=== PATIENT | male | born 1955 | race Asian ===

== ENCOUNTER 2024-01-12 10:59 | Observation (INO) ==
[2024-01-12 12:32] LABS: ABS Basophils 0.1 10^3/uL (0.0-0.1); ABS Eosinophils 0.1 10^3/uL (0.0-0.5); ABS Lymphocytes 1.8 10^3/uL (1.0-4.8); ABS Monocytes 0.6 10^3/uL (0.0-1.1); ABS Neutrophils 4.7 10^3/uL (1.5-7.6); ABS Nucleated RBC 0.01 10^3/ul; Eosinophil % 1.2 %; Hematocrit 50.2 % (38-53); Hemoglobin 17.2 g/dL (13.2-16.3); Lymphocyte % 24.5 %; Mean Corpuscular Hemoglobin 28.7 pg (27-33); Mean Corpuscular Hgb Conc 34.3 g/dL (31-36); Mean Corpuscular Volume 83.8 fL (80-97); Mean Platelet Volume 7.7 fL (7.5-11.2); Nucleated Red Blood Cells % 0.1 %/100WBC (0.0-0.8); Platelet Count 210 10^3/uL (150-450); Red Blood Count 5.98 10^6/uL (4.06-5.63); Red Cell Distribution Width 14.1 % (12-17); White Blood Count 7.2 10^3/uL (3.6-10.2)
[2024-01-12 12:45] LABS: Activated Partial Thrombo Time 36.7 seconds (26.0-38.0); INR 1.02 (0.85-1.14)
[2024-01-12] MEDS: Iodixanol (CONTRAST) 320 MG/ML 100 ML SDV IV ONE (12:45)
[2024-01-12 12:56] LABS: High Sens Troponin Baseline < 3 pg/mL (<20)
[2024-01-12] MEDS ORDERED: Sulfur Hexaflouride MICROSPHR 25 MG VIAL IV PRN (12:56)
[2024-01-12 13:14] LABS: ALT 38 U/L (7-52); AST 27 U/L (13-39); Albumin 5.1 g/dL (3.2-5.2); Albumin/Globulin Ratio 1.8 (1-3); Alkaline Phosphatase 64 U/L (35-149); Anion Gap 7 mmol/L (2-16); Blood Urea Nitrogen 12 mg/dL (6-24); CO2 Carbon Dioxide 27 mmol/L (22-32); Calcium 9.9 mg/dL (8.6-10.3); Chloride 98 mmol/L (101-111); Cholesterol 156 mg/dL; Creatinine, Serum 0.77 mg/dL (0.67-1.17); Direct Bilirubin 0.1 mg/dL (0.03-0.18); Globulin 2.9 g/dL (2-4); Glucose 184 mg/dL (70-100); HDL Cholesterol 69.8 mg/dL; Indirect Bilirubin 0.8 mg/dL (0.3-1.0); LDL Cholesterol 51 mg/dL; Magnesium 2.4 mg/dL (1.9-2.7); Potassium 4.3 mmol/L (3.5-5.0); Sodium 132 mmol/L (135-145); Total Bilirubin 0.9 mg/dL (0.2-1.0); Triglycerides 178 mg/dL; eGFR CKD-EPI 98.7 (>60)
[2024-01-12 13:26] LABS: TSH Ultra Thyroid Stim Horm 1.07 mcIU/mL (0.34-5.60)
[2024-01-12 14:10] LABS: Urine Appearance Clear; Urine Bilirubin Negative (Negative); Urine Blood Negative (Negative); Urine Color Light-Yellow; Urine Glucose 2+ (>=150 mg/dL) (Negative); Urine Ketones Negative (Negative); Urine Nitrite Negative (Negative); Urine Protein Negative (Negative); Urine Specific Gravity 1.027 (1.002-1.030); Urine Urobilinogen Negative (Negative)
[2024-01-12 14:19] LABS: High Sensitivity Troponin 1 Hr < 3 pg/mL (<20)
[2024-01-12] MEDS: Enoxaparin 40 MG/0.4 ML SYR SUBCUT SCH (21:18)
[2024-01-13] MEDS: NF:ICOSAPENT ETHYL 1 GM CAPSULE (NF) PO SCH (04:16)
[2024-01-13 06:09] LABS: Hematocrit 47.3 % (38-53); Hemoglobin 16.3 g/dL (13.2-16.3); Mean Corpuscular Hemoglobin 28.7 pg (27-33); Mean Corpuscular Hgb Conc 34.4 g/dL (31-36); Mean Corpuscular Volume 83.5 fL (80-97); Mean Platelet Volume 7.9 fL (7.5-11.2); Platelet Count 195 10^3/uL (150-450); Red Blood Count 5.67 10^6/uL (4.06-5.63); Red Cell Distribution Width 14.3 % (12-17); White Blood Count 8.1 10^3/uL (3.6-10.2)
[2024-01-13 06:27] LABS: Calcium 9.2 mg/dL (8.6-10.3); Creatinine, Serum 0.62 mg/dL (0.67-1.17); Magnesium 2.2 mg/dL (1.9-2.7); Potassium 3.9 mmol/L (3.5-5.0); eGFR CKD-EPI 105.4 (>60)
[2024-01-13] MEDS: PTO:ICOSAPENT ETHYL 1 GM CAPSULE (NF) PO SCH (08:25)
[2024-01-14 05:44] LABS: ABS Basophils 0.1 10^3/uL (0.0-0.1); ABS Eosinophils 0.3 10^3/uL (0.0-0.5); ABS Lymphocytes 2.2 10^3/uL (1.0-4.8); ABS Monocytes 0.8 10^3/uL (0.0-1.1); ABS Neutrophils 5.4 10^3/uL (1.5-7.6); Eosinophil % 3.7 %; Hematocrit 46.4 % (38-53); Hemoglobin 16.3 g/dL (13.2-16.3); Lymphocyte % 25.3 %; Mean Corpuscular Hemoglobin 29.6 pg (27-33); Mean Corpuscular Hgb Conc 35.2 g/dL (31-36); Mean Platelet Volume 7.9 fL (7.5-11.2); Platelet Count 183 10^3/uL (150-450); Red Blood Count 5.52 10^6/uL (4.06-5.63); Red Cell Distribution Width 14.2 % (12-17); White Blood Count 8.9 10^3/uL (3.6-10.2)
[2024-01-14 06:33] LABS: Albumin 4.4 g/dL (3.2-5.2); Albumin/Globulin Ratio 1.7 (1-3); Calcium 9.3 mg/dL (8.6-10.3); Creatinine, Serum 0.66 mg/dL (0.67-1.17); Globulin 2.6 g/dL (2-4); Potassium 4.3 mmol/L (3.5-5.0); Total Bilirubin 0.8 mg/dL (0.2-1.0); eGFR CKD-EPI 103.4 (>60)
[2024-01-14 10:14] VITALS: BP 141/73
== END 2024-01-14 13:40 | disposition home or self-care (01) ==
LOC: ED 10:59 → INTOOBSV 18:53 → EDHOLD 18:53 → MEDTELE 22:21
PROVIDERS: ADMIT Internal Medicine; ATTEND Internal Medicine